=== PATIENT | female | born 1960 | race Caucasian/White ===

== ENCOUNTER 2018-07-15 11:16 | Inpatient (IN) | payer OTHER ==
[~2018-07-15] VITALS: Ht 165.1 cm; Wt 105.0 kg
[~2018-07-15 11:16] MED LIST: ALBU90OI INH; Armour Thyroid15 MG PO; MELA3 PO; TIOT18 INH
[2018-07-15] MEDS ORDERED: LEVSOD125 PO (11:29)
[2018-07-15 12:08] LABS: BASOPHILS ABSOLUTE AUTO 0.04 K/mm3 (0.00-0.23); BASOPHILS PERCENT AUTO 1 % (0-2); EOSINOPHILS ABSOLUTE AUTO 0.11 K/mm3 (0.00-0.68); EOSINOPHILS PERCENT AUTO 2 % (0-6); Hematocrit 42.9 % (33.0-51.0); Hemoglobin 14.4 g/dL (11.5-16.0); IMMATURE GRAN ABSOLUTE AUTO 0.01 K/mm3 (0.00-0.10); IMMATURE GRAN PERCENT AUTO 0 % (0-1); LYMPHOCYTES ABSOLUTE AUTO 1.29 K/mm3 (0.84-5.20); LYMPHOCYTES PERCENT AUTO 21 % (21-46); MONOCYTES ABSOLUTE AUTO 0.48 K/mm3 (0.16-1.47); MONOCYTES PERCENT AUTO 8 % (4-13); Mean Corpuscular HGB Conc 33.6 g/dL (31.5-36.5); Mean Corpuscular Volume 92 fL (80-100); Mean Platelet Volume 9.9 fL (9.1-12.4); NEUTROPHILS ABSOLUTE AUTO 4.35 K/mm3 (1.96-9.15); NEUTROPHILS PERCENT AUTO 69 % (41-73); Platelet Count 248 K/mm3 (150-400); RDW Coefficient Variation 12.8 % (11.7-14.2); RDW Standard Deviation 43.3 fL (35.1-46.3); Red Blood Cell Count 4.65 M/mm3 (3.80-5.20); White Blood Cell Count 6.28 K/mm3 (4.00-11.30)
[2018-07-15 12:17] LABS: Alanine Aminotransfer (ALT/SGP 39 U/L (12-78); Albumin, Blood 3.8 g/dL (3.4-5.0); Albumin/Globulin Ratio 1.1 (0.8-1.8); Alk Phos 99 U/L (50-136); Anion Gap 9 mmol/L (6-16); Aspartate Aminotrans (AST/SGOT 47 U/L (12-37); Bilirubin, Total 0.7 mg/dL (0.1-1.0); Blood Urea Nitrogen 13 mg/dL (8-24); Bun/Creatinine Ratio 17.1 (12.0-20.0); CO2, Blood 24 mmol/L (21-32); Calcium, Blood 8.4 mg/dL (8.5-10.1); Chloride, Blood 106 mmol/L (98-108); Creatinine, Blood 0.76 mg/dL (0.40-1.00); Globulin, Blood 3.4 g/dL (2.2-4.0); Glomerular Filtration Rate >60 (60-); Glucose, Blood 106 mg/dL (70-99); Potassium, Blood 3.8 mmol/L (3.5-5.5); Sodium, Blood 139 mmol/L (136-145); Total Protein, Blood 7.2 g/dL (6.4-8.2)
[2018-07-15 18:35] LABS: International Normalized Ratio 1.07
[2018-07-16 02:50] LABS: BASOPHILS ABSOLUTE AUTO 0.02 K/mm3 (0.00-0.23); BASOPHILS PERCENT AUTO 0 % (0-2); EOSINOPHILS ABSOLUTE AUTO 0.09 K/mm3 (0.00-0.68); EOSINOPHILS PERCENT AUTO 1 % (0-6); Hematocrit 38.8 % (33.0-51.0); IMMATURE GRAN ABSOLUTE AUTO 0.01 K/mm3 (0.00-0.10); IMMATURE GRAN PERCENT AUTO 0 % (0-1); LYMPHOCYTES ABSOLUTE AUTO 0.93 K/mm3 (0.84-5.20); LYMPHOCYTES PERCENT AUTO 13 % (21-46); MONOCYTES ABSOLUTE AUTO 0.58 K/mm3 (0.16-1.47); MONOCYTES PERCENT AUTO 8 % (4-13); Mean Corpuscular HGB 31.3 pg (26.0-34.0); Mean Corpuscular HGB Conc 33.5 g/dL (31.5-36.5); Mean Corpuscular Volume 94 fL (80-100); Mean Platelet Volume 9.8 fL (9.1-12.4); NEUTROPHILS ABSOLUTE AUTO 5.54 K/mm3 (1.96-9.15); NEUTROPHILS PERCENT AUTO 77 % (41-73); Platelet Count 221 K/mm3 (150-400); RDW Standard Deviation 44.7 fL (35.1-46.3); Red Blood Cell Count 4.15 M/mm3 (3.80-5.20); White Blood Cell Count 7.17 K/mm3 (4.00-11.30)
[2018-07-16 03:12] LABS: Alanine Aminotransfer (ALT/SGP 38 U/L (12-78); Albumin, Blood 3.2 g/dL (3.4-5.0); Alk Phos 85 U/L (50-136); Anion Gap 7 mmol/L (6-16); Aspartate Aminotrans (AST/SGOT 89 U/L (12-37); Bilirubin, Total 0.7 mg/dL (0.1-1.0); Blood Urea Nitrogen 12 mg/dL (8-24); Bun/Creatinine Ratio 17.2 (12.0-20.0); CO2, Blood 24 mmol/L (21-32); Chloride, Blood 109 mmol/L (98-108); Globulin, Blood 3.1 g/dL (2.2-4.0); Glomerular Filtration Rate >60 (60-); Glucose, Blood 112 mg/dL (70-99); Potassium, Blood 4.4 mmol/L (3.5-5.5); Sodium, Blood 140 mmol/L (136-145); Total Protein, Blood 6.3 g/dL (6.4-8.2)
[2018-07-16] MEDS ORDERED: ASPI325 PO (14:04)
[2018-07-16] MEDS ORDERED: ATOR80 PO (14:05)
[2018-07-16] MEDS ORDERED: LOSA25 PO (14:06)
[2018-07-16] MEDS ORDERED: CLOP75 PO (14:06)
== END 2018-07-16 15:58 | disposition home or self-care (01) | DRG 247 ==
LOC: ER 11:16 → ICUW 12:51 → MEDS 12:51 → PCU 14:45 → MEDS 14:45 → ICUW 17:30 → PCU 07-16 08:42
PROVIDERS: Emergency Medicine; Internal Medicine; Internal Medicine Cardiovascular Disease
PROC: 4A023N7 Measurement of Cardiac Sampling and Pressure, Left Heart, Percutaneous Approach (ICD-10-PCS; principal; 2018-07-15)
PROC: B211YZZ Fluoroscopy of Multiple Coronary Arteries using Other Contrast (ICD-10-PCS; 2018-07-15)
PROC: 027034Z Dilation of Coronary Artery, One Artery with Drug-eluting Intraluminal Device, Percutaneous Approach (ICD-10-PCS; 2018-07-15)
DX: I21.19 ST elevation (STEMI) myocardial infarction involving other coronary artery of inferior wall (principal); I24.9 Acute ischemic heart disease, unspecified; E78.5 Hyperlipidemia, unspecified; E03.9 Hypothyroidism, unspecified; I10 Essential (primary) hypertension; I45.6 Pre-excitation syndrome; Z87.891 Personal history of nicotine dependence; Z85.3 Personal history of malignant neoplasm of breast
CPT/HCPCS: 36415; 71046; 80053; 84443; 84484; 85025; 85347; 85379; 85610; 86850; 86900; 86901; 92921; 92978; 93005; 93010; 93458; 96361; 96374; 99152; 99153; 99285-25; C1725; C1753; C1769; C1874; C1894; C8929; C9600; J0360; J1644; J1650; J2060; J2250; J2405; J3010; J3246; J7030; Q9957; Q9967

== ENCOUNTER 2019-06-02 15:05 | Emergency (ER) | payer BC ==
[~2019-06-02] VITALS: Ht 165.1 cm; Wt 99.8 kg
[~2019-06-02 15:05] MED LIST changes: +ASPI325 PO; +ATOR80 PO; +CLOP75 PO; +LEVSOD125 PO; +LOSA25 PO
[2019-06-02 15:38] LABS: BASOPHILS ABSOLUTE AUTO 0.03 K/mm3 (0.00-0.23); BASOPHILS PERCENT AUTO 1 % (0-2); EOSINOPHILS PERCENT AUTO 4 % (0-6); Hematocrit 43.2 % (33.0-51.0); Hemoglobin 14.1 g/dL (11.5-16.0); IMMATURE GRAN ABSOLUTE AUTO 0.02 K/mm3 (0.00-0.10); IMMATURE GRAN PERCENT AUTO 0 % (0-1); LYMPHOCYTES ABSOLUTE AUTO 1.58 K/mm3 (0.84-5.20); LYMPHOCYTES PERCENT AUTO 31 % (21-46); MONOCYTES ABSOLUTE AUTO 0.42 K/mm3 (0.16-1.47); MONOCYTES PERCENT AUTO 8 % (4-13); Mean Corpuscular HGB 30.6 pg (26.0-34.0); Mean Corpuscular HGB Conc 32.6 g/dL (31.5-36.5); Mean Corpuscular Volume 94 fL (80-100); Mean Platelet Volume 10.1 fL (9.1-12.4); NEUTROPHILS ABSOLUTE AUTO 2.85 K/mm3 (1.96-9.15); NEUTROPHILS PERCENT AUTO 56 % (41-73); Platelet Count 246 K/mm3 (150-400); RDW Coefficient Variation 13.2 % (11.7-14.2); RDW Standard Deviation 45.5 fL (35.1-46.3); Red Blood Cell Count 4.61 M/mm3 (3.80-5.20)
[2019-06-02 16:35] LABS: Alanine Aminotransfer (ALT/SGP 44 U/L (12-78); Albumin, Blood 3.9 g/dL (3.4-5.0); Albumin/Globulin Ratio 1.1 (0.8-1.8); Alk Phos 82 U/L (50-136); Anion Gap 5 mmol/L (6-16); Aspartate Aminotrans (AST/SGOT 17 U/L (12-37); Bilirubin, Total 0.6 mg/dL (0.1-1.0); Blood Urea Nitrogen 25 mg/dL (8-24); Bun/Creatinine Ratio 30.7 (12.0-20.0); CO2, Blood 25 mmol/L (21-32); Calcium, Blood 8.8 mg/dL (8.5-10.1); Chloride, Blood 108 mmol/L (98-108); Creatinine, Blood 0.82 mg/dL (0.40-1.00); Globulin, Blood 3.5 g/dL (2.2-4.0); Glomerular Filtration Rate >60 (60-); Glucose, Blood 97 mg/dL (70-99); Sodium, Blood 138 mmol/L (136-145); Total Protein, Blood 7.4 g/dL (6.4-8.2); Troponin I <0.015 ng/mL (0.000-0.040)
== END 2019-06-02 20:22 | disposition home or self-care (01) ==
LOC: ER 15:05
PROVIDERS: Physician Assistant
DX: R07.89 Other chest pain (principal); Z88.8 Allergy status to other drugs, medicaments and biological substances; Z88.5 Allergy status to narcotic agent; Z91.048 Other nonmedicinal substance allergy status; Z79.899 Other long term (current) drug therapy; Z79.82 Long term (current) use of aspirin; I25.2 Old myocardial infarction
CPT/HCPCS: 71046; 71260; 80053; 83880; 84484; 85025; 93005; 93010; 96361; 96374-59; 99285-25; J1885; J7030; Q9967

== ENCOUNTER 2020-09-27 08:47 | Day surgery (SDC) | payer BC | END 2020-09-27 23:10 | disposition home or self-care (01) | LOC: MOI US 08:47 → MOI MAM 09:30 → MOI US 09:30 | DX: N63.11 Unspecified lump in the right breast, upper outer quadrant (principal); Z85.3 Personal history of malignant neoplasm of breast ==

== ENCOUNTER 2024-08-22 09:14 | Inpatient (IN) | payer BC ==
[~2024-08-22] VITALS: Ht 162.6 cm; Wt 92.3 kg
[2024-08-22] VITALS (35 sets, daily range): BP systolic 96–160; BP diastolic 50–92
[2024-08-22 09:41] LABS: BASOPHILS ABSOLUTE AUTO 0.02 K/mm3 (0.00-0.23); BASOPHILS PERCENT AUTO 0 % (0-2); EOSINOPHILS ABSOLUTE AUTO 0.19 K/mm3 (0.00-0.68); EOSINOPHILS PERCENT AUTO 4 % (0-6); Hematocrit 39.1 % (33.0-51.0); Hemoglobin 13.4 g/dL (11.5-16.0); IMMATURE GRAN ABSOLUTE AUTO 0.01 K/mm3 (0.00-0.10); IMMATURE GRAN PERCENT AUTO 0 % (0-1); LYMPHOCYTES ABSOLUTE AUTO 1.04 K/mm3 (0.84-5.20); LYMPHOCYTES PERCENT AUTO 21 % (21-46); MONOCYTES ABSOLUTE AUTO 0.51 K/mm3 (0.16-1.47); MONOCYTES PERCENT AUTO 10 % (4-13); Mean Corpuscular HGB 30.9 pg (26.0-34.0); Mean Corpuscular HGB Conc 34.3 g/dL (31.5-36.5); Mean Corpuscular Volume 90 fL (80-100); Mean Platelet Volume 9.7 fL (9.1-12.4); NEUTROPHILS ABSOLUTE AUTO 3.21 K/mm3 (1.96-9.15); NEUTROPHILS PERCENT AUTO 65 % (41-73); Platelet Count 227 K/mm3 (150-400); RDW Coefficient Variation 12.7 % (11.7-14.2); RDW Standard Deviation 41.9 fL (35.1-46.3); Red Blood Cell Count 4.34 M/mm3 (3.80-5.20); White Blood Cell Count 4.98 K/mm3 (4.00-11.30)
[2024-08-22 10:05] LABS: Albumin, Blood 3.5 g/dL (3.4-5.0); Bilirubin, Total 0.6 mg/dL (0.1-1.0); Bun/Creatinine Ratio 21.9 (12.0-20.0); Calcium, Blood 8.9 mg/dL (8.5-10.1); Creatinine, Blood 0.69 mg/dL (0.40-1.00); Globulin, Blood 3.4 g/dL (2.2-4.0); Total Protein, Blood 6.9 g/dL (6.4-8.2)
[2024-08-22] MEDS ORDERED: Nitroglycerin Patch 0.4 MG / HR TOP ONE (11:05)
[2024-08-22] MEDS ORDERED: NS 1,000 ML IV SCH ×2 (11:05→17:15)
[2024-08-22] MEDS ORDERED: Zolpidem Tartrate 5 MG Tab PO PRN (11:20)
[2024-08-22] MEDS ORDERED: Prochlorperazine Edisylate 10 mg Vial IV PRN (11:25)
[2024-08-22] MEDS ORDERED: FLU VACC TS2024-25(6MOS UP)/PF 45 MCG/0.5 ML SYRINGE IM ONE (11:25)
[2024-08-22] MEDS ORDERED: Acetaminophen 325 MG TABLET PO PRN (11:25)
[2024-08-22] MEDS ORDERED: NS 1,000 ML IV ONE ×3 (11:35→16:21)
[2024-08-22] MEDS ORDERED: Verapamil HCL 2.5 MG/ML 2ML Injection ONE (11:35)
[2024-08-22] MEDS ORDERED: Nitroglycerin 2 MG/20 ML BTL ONE (11:35)
[2024-08-22] MEDS ORDERED: NS 250 ML IV ONE (11:35)
[2024-08-22] MEDS ORDERED: Heparin Sodium 1000 Units/ML 10ML MDV ONE ×2 (11:35→12:45)
[2024-08-22] MEDS ORDERED: Midazolam HCl 1MG / ML 2ML Vial ONE (11:41)
[2024-08-22] MEDS ORDERED: FentaNYL Citrate 50 MCG/ML 2 ML Injection ONE ×3 (11:41→16:58)
[2024-08-22] MEDS ORDERED: Ondansetron HCl 2 MG / ML 2ML Vial ONE ×3 (11:42→16:05)
[2024-08-22] MEDS ORDERED: Tirofiban HCL Monohydrate 3.75 MG/15 ML Vial ONE (11:59)
[2024-08-22] MEDS ORDERED: Phenylephrine HCl 100 MCG/ML-NS 10MLSYR (1MG/10ML) ONE (12:07)
[2024-08-22] MEDS ORDERED: Ondansetron HCl 2 MG / ML 2ML Vial IV ONE (12:10)
[2024-08-22 12:13] LABS: Anti-Xa UFH, PHA Monitoring <0.10 IU/mL; International Normalized Ratio 0.96; Prothrombin Time Results 10.3 Sec (9.7-11.5)
[2024-08-22] MEDS ORDERED: Heparin Sodium,Porcine/0.5 NS 500 ML IV SCH (12:25)
[2024-08-22] MEDS ORDERED: Ticagrelor 90 MG TABLET ONE ×2 (12:27→12:29)
--- NOTE | 2024-08-22 14:45 | NUR ---
ECHO IN ROOM FOR ECHOCARDIOGRAM. VSS. R FEMORAL SITE REMAINS SOFT, NON-TENDER, NO BLEEDING OR HEMATOMA. NADN. CALL LIGHT WITHIN REACH. FAMILY AT BEDSIDE.
--- NOTE | 2024-08-22 16:00 | NUR ---
DR ROOT IN ROOM DISCUSSING PLAN OF CARE.
--- NOTE | 2024-08-22 16:20 | NUR ---
PT C/O NAUSEA, LOWER BACK PAIN. HEMATOMA NOTED AT R FEMORAL SITE. MANUAL PRESSURE HELD. FEMSTOP IN PLACE. DR YUSUF WITH NEW ORDERS. PT TOLERATING WELL.
[2024-08-22 16:36] LABS: BASOPHILS ABSOLUTE AUTO 0.01 K/mm3 (0.00-0.23); BASOPHILS PERCENT AUTO 0 % (0-2); EOSINOPHILS ABSOLUTE AUTO 0.04 K/mm3 (0.00-0.68); EOSINOPHILS PERCENT AUTO 1 % (0-6); Hematocrit 34.6 % (33.0-51.0); Hemoglobin 11.7 g/dL (11.5-16.0); IMMATURE GRAN ABSOLUTE AUTO 0.02 K/mm3 (0.00-0.10); IMMATURE GRAN PERCENT AUTO 0 % (0-1); LYMPHOCYTES ABSOLUTE AUTO 0.82 K/mm3 (0.84-5.20); LYMPHOCYTES PERCENT AUTO 17 % (21-46); MONOCYTES ABSOLUTE AUTO 0.23 K/mm3 (0.16-1.47); MONOCYTES PERCENT AUTO 5 % (4-13); Mean Corpuscular HGB 30.9 pg (26.0-34.0); Mean Corpuscular HGB Conc 33.8 g/dL (31.5-36.5); Mean Corpuscular Volume 91 fL (80-100); Mean Platelet Volume 9.7 fL (9.1-12.4); NEUTROPHILS ABSOLUTE AUTO 3.84 K/mm3 (1.96-9.15); NEUTROPHILS PERCENT AUTO 78 % (41-73); Platelet Count 219 K/mm3 (150-400); RDW Coefficient Variation 12.9 % (11.7-14.2); RDW Standard Deviation 43.1 fL (35.1-46.3); Red Blood Cell Count 3.79 M/mm3 (3.80-5.20); White Blood Cell Count 4.96 K/mm3 (4.00-11.30)
--- NOTE | 2024-08-22 16:40 | NUR ---
PT TO CT FOR CTA. FEMSTOP IN PLACE TO R FEMORAL SITE.
--- NOTE | 2024-08-22 17:07 | NUR ---
PT BACK TO ROOM, DR ROOT IN ROOM DISCUSSING PLAN OF CARE. VSS. PT REPORTS, PAIN REMAINS AT LOWER BACK. PT MEDICATED WITH FENTANYL 50MCG IV, PER ORDERS, PT TOLERATES WELL. FEMSTOP IN PLACE. FAMILY AT BEDSIDE.
--- NOTE | 2024-08-22 17:19 | NUR ---
CARE OF PT ASSUMED. PT AWAKE AND ALERT. PT C/O PAIN TO RIGHT GROIN 01/19. FEM STOP IN PLACE. HEMATOMA TO UPPER THIGH SOFT. CIRC CHECK TO RLE WNL. NO ACUTE BLEEDING PER CTA/DR MAXWELL. PT'S DAUGHTER AT BEDSIDE. PT DENIES NAUSEA. BP IMPROVED 140/70. NS AT 100CC/HR. AWITING ICU BED ASSIGNMENT.
[2024-08-22] MEDS ORDERED: Nitroglycerin/D5W 250 ML IV SCH (18:55)
--- NOTE | 2024-08-22 19:13 | NUR ---
ADMISSION NOTE BEDSIDE REPORT DONE WITH HODA DAMON. CATH SITE ASSESSED, SMALL HEMATOMA AND BRUISING NOTED. FEMSTOP IN PLACE. PT TO STAY FLAT FOR 4 HOURS. PROVIDER AT BEDSIDE, ORDERED NITRO GTT TO KEEP SBP BELOW 130. FEMSTOP REMOVED AT 1840 PER PROVIDER. N: AOX4 C: NSR ON TELE R: RA GI/: PUREWICK IN PLACE. PT ATE DINNER S: R GROIN INCISION WITH TEGADERM. NO CHANGE IN HEMATOMA AND NO OOZING NOTICED LINES : L PIV GTT: FAMILY: DAUGHTER AT BEDSIDE
[2024-08-22] MEDS ORDERED: Ticagrelor 90 MG TABLET PO SCH (20:00)
--- NOTE | 2024-08-22 20:28 | NUR ---
UPDATE HELD NITRO DRIP DUE TO SBP 124 MAP 85.
[2024-08-22] MEDS ORDERED: Famotidine 20 MG Tab PO SCH (21:00)
[2024-08-22] MEDS ORDERED: Lactobacil 2-S.Thermo-Bifido 1 1 Cap PO SCH (21:00)
[2024-08-23] VITALS (42 sets, daily range): BP systolic 86–153; BP diastolic 57–98
[2024-08-23 04:29] LABS: BASOPHILS ABSOLUTE AUTO 0.02 K/mm3 (0.00-0.23); BASOPHILS PERCENT AUTO 0 % (0-2); EOSINOPHILS ABSOLUTE AUTO 0.14 K/mm3 (0.00-0.68); EOSINOPHILS PERCENT AUTO 2 % (0-6); Hematocrit 33.5 % (33.0-51.0); Hemoglobin 11.3 g/dL (11.5-16.0); IMMATURE GRAN ABSOLUTE AUTO 0.01 K/mm3 (0.00-0.10); IMMATURE GRAN PERCENT AUTO 0 % (0-1); LYMPHOCYTES ABSOLUTE AUTO 1.15 K/mm3 (0.84-5.20); LYMPHOCYTES PERCENT AUTO 20 % (21-46); MONOCYTES PERCENT AUTO 9 % (4-13); Mean Corpuscular HGB 30.9 pg (26.0-34.0); Mean Corpuscular HGB Conc 33.7 g/dL (31.5-36.5); Mean Corpuscular Volume 92 fL (80-100); NEUTROPHILS ABSOLUTE AUTO 4.06 K/mm3 (1.96-9.15); NEUTROPHILS PERCENT AUTO 69 % (41-73); Platelet Count 207 K/mm3 (150-400); RDW Coefficient Variation 13.2 % (11.7-14.2); RDW Standard Deviation 43.9 fL (35.1-46.3); Red Blood Cell Count 3.66 M/mm3 (3.80-5.20); White Blood Cell Count 5.88 K/mm3 (4.00-11.30)
--- NOTE | 2024-08-23 04:36 | NUR ---
UPDATE STARTING AT 1915 CHECKING PCI FEMORAL SITE Q15 OF AN HOUR, THEN Q30 FOR AN HOUR, THEN Q1 HOUR FOR 4 HOURS. NO BLEEDING, NOT TENDER, NO PAIN, SITE SOFT TO PALPATE, AND NO HEMATOMA.
[2024-08-23 04:52] LABS: Albumin, Blood 2.8 g/dL (3.4-5.0); Bilirubin, Total 0.6 mg/dL (0.1-1.0); Bun/Creatinine Ratio 14.2 (12.0-20.0); Calcium, Blood 8.1 mg/dL (8.5-10.1); Creatinine, Blood 0.7 mg/dL (0.40-1.00); Globulin, Blood 2.9 g/dL (2.2-4.0); Potassium, Blood 3.6 mmol/L (3.5-5.5); Total Protein, Blood 5.7 g/dL (6.4-8.2)
--- NOTE | 2024-08-23 05:33 | NUR ---
SHIFT SUMMARY PATIENT SLEPT OFF AND ON DURING NIGHT. DAUGHTER WAS AT BEDSIDE AND LEFT AROUND 2100. PATIENT IS A&O X4, PATIENT HAD 2 CARDIAC STENTS (PIC) MID RCA RIGHT FEMORAL, HAS TEGADERM OVER SITE. HAS AN INCISION WITH BANDAGE ON RIGHT RADIAL ATTEMPT. NO BLEEDING, NOT TENDER, SOFT TO PALPATE SITE. LUNGS CLEAR, ON HEART HEALTHY DIET, HAS PUREWICK IN PLACE CLEAR YELLOW COLORED URINE. HAS NITRO DRIP RUNNING AT 15MCG/MIN PER EMAR ORDER SBP 120-150'S HR IN THE 60'S. NORMAL SALININE 0.9% RUNNING 1 BAG AT 100MLS. PATIENT ABLE TO USE CALL LIGHT. PHONE ON SIDE TABLE AND WITHIN REACH. CALL LIGHT WITHIN REACH.
[2024-08-23] MEDS ORDERED: Levothyroxine Sodium 0.15 MG Tab PO SCH (06:00)
[2024-08-23] MEDS ORDERED: Ezetimibe 10 MG Tab PO SCH (09:00)
[2024-08-23] MEDS ORDERED: Aspirin 81 MG Chew PO SCH (09:00)
[2024-08-23] MEDS ORDERED: Atorvastatin 40 MG Tab PO SCH (09:00)
[2024-08-23] MEDS ORDERED: NS 250 ML IV PRN (10:00)
[2024-08-23] MEDS ORDERED: Potassium Chloride 20 MEQ TabCR PO ONE (10:00)
[2024-08-23] MEDS ORDERED: Carvedilol 3.125 MG Tab PO SCH (10:00)
--- NOTE | 2024-08-23 10:20 | NUR ---
SHIFT EVENT 923 TELE ALARMING. RN IN ROOM, PT HAVING PAUSES AND BIGEMENY. BP DROPPING QUICKLY AND PT COMPLAINING OF BEING DIZZY/LIGHTHEADED. NITRO GTT TURNED OFF, EKG OBTAINED. DR. MAXWELL NOTIFIED, NEW MEDICATIONS ORDERED AND GIVEN PER JAN. NITRO GTT TO REMAIN OFF. PT PLACED BACK IN BED.
[2024-08-23] MEDS ORDERED: Lisinopril 5 MG Tab PO ONE (12:00)
[2024-08-23] MEDS ORDERED: ASPI81CH PO (12:57)
[2024-08-23] MEDS ORDERED: CARV3.125 PO (12:58)
[2024-08-23] MEDS ORDERED: EZET10 PO (13:00)
[2024-08-23] MEDS ORDERED: FAMO20 PO (13:00)
[2024-08-23] MEDS ORDERED: LEVOTHYROXINE125 MC9 PO (13:01)
[2024-08-23] MEDS ORDERED: LISI5 PO (13:01)
[2024-08-23] MEDS ORDERED: TICA90TA PO (13:02)
--- NOTE | 2024-08-23 13:26 | NUR ---
DISCHARGE NOTE PT DISCHARGED HOME WITH DAUGHTER. FOLLOW UP APPOINTMENT WITH PCP AND CARDIOLOGY. MEDICATIONS SENT TO PT PREFERRED PHARMACY. DISCHARGE INSTRUCTIONS REVIEWED AND ALL QUESTIONS ANSWERED. IV REMOVED. ALL BELONGINGS WITH PATIENT
[2024-08-24] MEDS ORDERED: Lisinopril 5 MG Tab PO SCH (09:00)
== END 2024-08-23 14:38 | disposition home or self-care (01) | DRG 322 ==
LOC: ER 09:14 → ICUE 09:15
PROVIDERS: Emergency Medicine; Hospitalist; ADMIT Student in an Organized Health Care Education/Training Program
PROC: 027035Z Dilation of Coronary Artery, One Artery with Two Drug-eluting Intraluminal Devices, Percutaneous Approach (ICD-10-PCS; principal; 2024-08-22)
PROC: B240ZZ3 Ultrasonography of Single Coronary Artery, Intravascular (ICD-10-PCS; 2024-08-22)
PROC: 4A023N7 Measurement of Cardiac Sampling and Pressure, Left Heart, Percutaneous Approach (ICD-10-PCS; 2024-08-22)
PROC: B211YZZ Fluoroscopy of Multiple Coronary Arteries using Other Contrast (ICD-10-PCS; 2024-08-22)
DX: I21.19 ST elevation (STEMI) myocardial infarction involving other coronary artery of inferior wall (principal); I25.82 Chronic total occlusion of coronary artery; I25.10 Atherosclerotic heart disease of native coronary artery without angina pectoris; I25.5 Ischemic cardiomyopathy; E78.5 Hyperlipidemia, unspecified; E03.9 Hypothyroidism, unspecified; J45.909 Unspecified asthma, uncomplicated; I11.0 Hypertensive heart disease with heart failure; I50.9 Heart failure, unspecified; Z85.3 Personal history of malignant neoplasm of breast; Z91.048 Other nonmedicinal substance allergy status; Z88.8 Allergy status to other drugs, medicaments and biological substances; Z79.82 Long term (current) use of aspirin; Z79.899 Other long term (current) drug therapy; Z79.02 Long term (current) use of antithrombotics/antiplatelets; Z79.890 Hormone replacement therapy; I45.6 Pre-excitation syndrome; Z98.1 Arthrodesis status
CPT/HCPCS: 36415; 71045; 75635; 76937; 80053; 83735; 83880; 84484; 85025; 85347; 85520; 85610; 85730; 86850; 86900; 86901; 92978; 93005; 93010; 93454; 93458; 93571; 93572; 96361; 96374; 99152; 99153; 99285-25; A9270; C1725; C1753; C1760; C1769; C1874; C1887; C1894; C8929; C9606; G0378; J1644; J2250; J2371; J2405; J3010; J3246; J7030; J7050; Q9957; Q9967